=== PATIENT | male | born 1950 | race Two or more races ===

== ENCOUNTER 2016-12-10 19:27 | Inpatient (IN) | payer MEDICAID ==
[~2016-12-10] VITALS: Ht 170.2 cm; Wt 87.5 kg
[~2016-12-10 19:27] MED LIST: CAR3125T PO; INDO25CA PO; LIS5T PO; OMEP20CA5 PO
[2016-12-10 20:41] LABS: Basophils # (auto) 0 uL; Eosinophils # (auto) 0 uL; Eosinophils % (auto) 0.1 % (0.0-7.0); Hematocrit 44.7 % (41.0-53.0); Hemoglobin 14.9 g/dL (13.5-17.5); Lymphocytes # (auto) 0.7 uL; Lymphocytes % (auto) 8.1 % (10.0-50.0); Mean Corpuscular Hgb Conc. 33.5 g/dL (32.0-36.0); Mean Corpuscular Volume 98.8 fL (80.0-100.0); Mean Platelet Volume 6.2 fL (7.4-10.4); Monocytes # (auto) 0.7 uL; Monocytes % (auto) 8.4 % (0.0-12.0); Neutrophils # (auto) 6.8 uL; Neutrophils % (auto) 83.4 % (37.0-80.0); Platelet Count (auto) 246 10^3/uL (140-450); Red Cell Distribution Width 12.6 % (11.6-16.0); White Blood Cell 8.2 10^3/uL (4.4-10.8)
[2016-12-10] MEDS ORDERED: cloNIDine HCL 0.1 MG TAB PO ONE (20:45)
[2016-12-10 21:15] LABS: Albumin 4.1 g/dL (3.4-5.0); BUN/Creatinine Ratio 9.4; Calcium 8.6 mg/dL (8.5-10.1); Potassium 4.1 mmol/L (3.5-5.1); Total Protein 8.2 g/dL (6.4-8.2)
[2016-12-10] MEDS ORDERED: ONDANSETRON HCL 4 MG/2 ML VIAL IV ONE (21:45)
[2016-12-10 23:12] LABS: Urine RBC None Seen /hpf (0 - 3)
[2016-12-10] MEDS ORDERED: SODIUM CHLORIDE 0.9% 1,000 ML IV ONE (23:15)
[2016-12-10 23:30] LABS: Urine Bilirubin Negative (Negative); Urine Blood Negative /uL (Negative); Urine Color Yellow (Yellow); Urine Glucose Normal (Normal); Urine Nitrite Negative (Negative); Urine Squamous Epithelial Cell FEW /hpf (<5); Urine Urobilinogen Normal (Negative); Urine pH 5.5 (5.0-8.0)
[2016-12-10 23:31] LABS: Urine Ketone 3+ (Negative)
[2016-12-11] MEDS ORDERED: SODIUM CHL 3% 500 ML IV ONE (03:00)
[2016-12-11] MEDS ORDERED: cloNIDine HCL 0.1 MG TAB PO PRN (03:00)
[2016-12-11] MEDS ORDERED: ONDANSETRON HCL 4 MG/2 ML VIAL IV PRN (03:00)
[2016-12-11] MEDS ORDERED: HYDROcodone-ACET 5/325MG TAB PO PRN (03:00)
[2016-12-11] MEDS ORDERED: MORPHINE SULF INJ 2 MG/ML SYRINGE 1ML IV PRN (03:00)
[2016-12-11] MEDS ORDERED: ACETAMINOPHEN 325 MG TAB PO PRN (03:00)
[2016-12-11] MEDS ORDERED: TEMAZEPAM 15 MG CAP PO PRN (03:00)
[2016-12-11] MEDS ORDERED: NITROGLYCERIN 0.4 MG SL TAB SL PRN (03:00)
[2016-12-11 06:41] VITALS: BP 136/94
[2016-12-11] MEDS ORDERED: LISI40TA PO (07:17)
[2016-12-11 08:00] VITALS: BP 120/83
[2016-12-11 08:25] VITALS: BP 147/96
[2016-12-11] MEDS: LISINOPRIL 20 MG TAB PO SCH (09:18)
[2016-12-11] MEDS: FAMOTIDINE 20 MG TAB PO SCH ×2 (09:19→21:32)
[2016-12-11] MEDS: ENOXAPARIN SOD 40 MG/0.4 ML SYRINGE SC SCH (09:19)
[2016-12-11] MEDS ORDERED: LORazepam 2MG/ML-1ML VIAL IV PRN (10:15)
[2016-12-11] MEDS ORDERED: FUROSEMIDE 20 MG/2 ML VIAL IV ONE (10:15)
[2016-12-11 12:00] VITALS: BP 98/56
[2016-12-11 17:00] VITALS: BP 106/77
[2016-12-11] MEDS: SODIUM CHLORIDE 0.9% 1,000 ML IV SCH (20:07)
[2016-12-11 22:00] VITALS: BP 93/62
[2016-12-12 05:00] VITALS: BP 107/72
[2016-12-12] MEDS: SODIUM CHLORIDE 0.9% 1,000 ML IV SCH ×2 (05:13→10:35)
[2016-12-12 06:11] LABS: Basophils # (auto) 0 uL; Basophils % (auto) 0.2 % (0.0-2.0); Eosinophils # (auto) 0.1 uL; Eosinophils % (auto) 2.2 % (0.0-7.0); Hematocrit 40.2 % (41.0-53.0); Hemoglobin 13.6 g/dL (13.5-17.5); Lymphocytes # (auto) 0.9 uL; Lymphocytes % (auto) 19.7 % (10.0-50.0); Mean Corpuscular Hemoglobin 33.2 pg (28.0-32.0); Mean Corpuscular Hgb Conc. 33.8 g/dL (32.0-36.0); Mean Platelet Volume 6.1 fL (7.4-10.4); Monocytes # (auto) 0.8 uL; Monocytes % (auto) 17.3 % (0.0-12.0); Neutrophils # (auto) 2.8 uL; Neutrophils % (auto) 60.6 % (37.0-80.0); Platelet Count (auto) 242 10^3/uL (140-450); Red Cell Distribution Width 12.6 % (11.6-16.0); White Blood Cell 4.6 10^3/uL (4.4-10.8)
[2016-12-12 06:36] LABS: Albumin 3.6 g/dL (3.4-5.0); BUN/Creatinine Ratio 11.9; Bilirubin, Total 0.8 mg/dL (0.2-1.0); Calcium 8.4 mg/dL (8.5-10.1); Magnesium 2.3 mg/dL (1.6-2.6); Potassium 4.5 mmol/L (3.5-5.1); Total Protein 6.9 g/dL (6.4-8.2)
[2016-12-12 08:00] VITALS: BP 107/72
[2016-12-12 08:46] VITALS: BP 126/80
[2016-12-12] MEDS: FAMOTIDINE 20 MG TAB PO SCH (10:34)
[2016-12-12] MEDS: LISINOPRIL 20 MG TAB PO SCH (10:35)
[2016-12-12] MEDS: ENOXAPARIN SOD 40 MG/0.4 ML SYRINGE SC SCH (10:35)
[2016-12-12 13:00] VITALS: BP 107/70
[2016-12-12 15:49] VITALS: BP 107/70
== END 2016-12-12 16:30 | disposition home or self-care (01) | DRG 422 ==
LOC: ER 19:31 → TELE 19:32 → TELE-EAST 12-11 05:50
PROVIDERS: ADMIT Nurse Practitioner; ATTEND Internal Medicine
DX: E87.1 Hypo-osmolality and hyponatremia (principal); E86.0 Dehydration; I10 Essential (primary) hypertension; R74.8 Abnormal levels of other serum enzymes; M62.81 Muscle weakness (generalized); M10.9 Gout, unspecified; F41.1 Generalized anxiety disorder; H53.8 Other visual disturbances; Z82.49 Family history of ischemic heart disease and other diseases of the circulatory system; Z79.899 Other long term (current) drug therapy; Z95.0 Presence of cardiac pacemaker
CPT/HCPCS: 36415; 70450; 80053; 81001; 82533; 83735; 83930; 83935; 84295; 84300; 84436; 84443; 84484; 85025; 85652; 93005; 96361; 96374; J2405

== ENCOUNTER → 2017-03-12 | Outpatient (CLI) | payer MEDICARE, MEDICAID ==
[~2017-03-12] MED LIST changes: -CAR3125T PO; -INDO25CA PO; -LIS5T PO; +LISI40TA PO; +LOR05T PO; -OMEP20CA5 PO
[2017-03-12 12:54] LABS: BUN/Creatinine Ratio 11.1; Calcium 9.6 mg/dL (8.5-10.1); Potassium 5.4 mmol/L (3.5-5.1)
== END | disposition home or self-care (01) ==
LOC: LAB 12:07
PROVIDERS: ATTEND Family Medicine
DX: E87.1 Hypo-osmolality and hyponatremia (principal)
CPT/HCPCS: 36415; 80048

== ENCOUNTER → 2017-04-02 | Outpatient (CLI) | payer MEDICARE, MEDICAID ==
[~2017-04-02] MED LIST changes: +APIX5TAB OR; +CAR3125T PO; +INDO25CA14 PO; -LISI40TA PO; +OMEP20CA74 PO
[2017-04-02 10:05] LABS: Albumin 3.9 g/dL (3.4-5.0); BUN/Creatinine Ratio 14.3; Bilirubin, Total 0.6 mg/dL (0.2-1.0); Calcium 8.9 mg/dL (8.5-10.1); Potassium 3.9 mmol/L (3.5-5.1); Total Protein 7.6 g/dL (6.4-8.2)
== END | disposition home or self-care (01) ==
LOC: LAB 09:07
PROVIDERS: ATTEND Family Medicine
DX: I26.99 Other pulmonary embolism without acute cor pulmonale (principal); E87.1 Hypo-osmolality and hyponatremia
CPT/HCPCS: 36415; 80053

== ENCOUNTER → 2017-05-05 | Outpatient (CLI) | payer MEDICARE, MEDICAID ==
[~2017-05-05] MED LIST changes: -APIX5TAB OR; -INDO25CA14 PO; +LOS25T PO; +WARF5TAB PO
[2017-05-05 12:27] LABS: BUN/Creatinine Ratio 11.6; Calcium 8.7 mg/dL (8.5-10.1); Potassium 4.5 mmol/L (3.5-5.1)
== END | disposition home or self-care (01) ==
LOC: LAB 10:28
PROVIDERS: ATTEND Family Medicine
DX: I10 Essential (primary) hypertension (principal); E87.1 Hypo-osmolality and hyponatremia
CPT/HCPCS: 36415; 80048

== ENCOUNTER → 2017-10-23 | Outpatient (CLI) | payer MEDICARE, MEDICAID ==
[~2017-10-23] MED LIST changes: +AMLO5TAB2 PO; +CLON0.1T PO; -LOR05T PO; +LORA-654 PO; +METH500T6 PO; +METO-158 PO; +RIVA20TA PO
[2017-10-23 08:48] LABS: Basophils # (auto) 0 uL; Basophils % (auto) 0.7 % (0.0-2.0); Eosinophils # (auto) 0.2 uL; Eosinophils % (auto) 4.1 % (0.0-7.0); Hematocrit 44.9 % (41.0-53.0); Hemoglobin 15.1 g/dL (13.5-17.5); Lymphocytes # (auto) 0.7 uL; Lymphocytes % (auto) 17.8 % (10.0-50.0); Mean Corpuscular Hemoglobin 33.8 pg (28.0-32.0); Mean Corpuscular Hgb Conc. 33.6 g/dL (32.0-36.0); Mean Corpuscular Volume 100.4 fL (80.0-100.0); Monocytes # (auto) 0.5 uL; Monocytes % (auto) 14.7 % (0.0-12.0); Neutrophils # (auto) 2.3 uL; Neutrophils % (auto) 62.7 % (37.0-80.0); Platelet Count (auto) 223 10^3/uL (140-450); Red Blood Cells 4.47 10^6/uL (4.5-5.90); Red Cell Distribution Width 12.8 % (11.8-14.3); White Blood Cell 3.7 10^3/uL (4.4-10.8)
[2017-10-23 08:58] LABS: Urine Bacteria NONE SEEN /hpf (None Seen); Urine Blood Negative /uL (Negative); Urine Specific Gravity 1.006 (1.001-1.035); Urine WBC <1 /hpf (0 - 3)
[2017-10-23 09:27] LABS: Albumin 3.8 g/dL (3.4-5.0); BUN/Creatinine Ratio 9.7; Bilirubin, Total 0.5 mg/dL (0.2-1.0); Calcium 8.9 mg/dL (8.5-10.1); Potassium 4.4 mmol/L (3.5-5.1); Total Protein 8.2 g/dL (6.4-8.2)
[2017-10-23 09:34] LABS: Folate (Folic Acid) 11.48 ng/mL (5.38-24)
== END | disposition home or self-care (01) ==
LOC: LAB 08:25
PROVIDERS: ATTEND Nurse Practitioner
DX: F33.0 Major depressive disorder, recurrent, mild (principal); R79.89 Other specified abnormal findings of blood chemistry; E55.9 Vitamin D deficiency, unspecified
CPT/HCPCS: 36415; 80053; 80061; 81001; 82306; 82607; 82746; 83036; 84443; 85025

== ENCOUNTER → 2017-11-05 | Outpatient (CLI) | payer MEDICARE, MEDICAID ==
[~2017-11-05] VITALS: Ht 170.2 cm; Wt 83.5 kg
[~2017-11-05] MED LIST changes: +ADENOSINE 70 MG in GIVE UN-DILUTED 0 ML IV ONE
[2017-11-05 09:38] VITALS: BP 149/79
== END | disposition home or self-care (01) ==
LOC: XY 07:01
PROVIDERS: ATTEND Internal Medicine
DX: I48.91 Unspecified atrial fibrillation (principal); I26.99 Other pulmonary embolism without acute cor pulmonale; Z95.0 Presence of cardiac pacemaker
CPT/HCPCS: 78452; 93017; 93306; A9500; J0153

== ENCOUNTER → 2017-11-24 | Outpatient (CLI) | payer MEDICARE, MEDICAID ==
[~2017-11-24] MED LIST changes: -ADENOSINE 70 MG in GIVE UN-DILUTED 0 ML IV ONE
[2017-11-24 09:53] LABS: Basophils # (auto) 0 uL; Basophils % (auto) 1.1 % (0.0-2.0); Eosinophils # (auto) 0.2 uL; Eosinophils % (auto) 5.2 % (0.0-7.0); Hematocrit 43.7 % (41.0-53.0); Hemoglobin 14.7 g/dL (13.5-17.5); Lymphocytes # (auto) 0.9 uL; Lymphocytes % (auto) 22.6 % (10.0-50.0); Mean Corpuscular Hemoglobin 33.4 pg (28.0-32.0); Mean Corpuscular Hgb Conc. 33.5 g/dL (32.0-36.0); Mean Corpuscular Volume 99.7 fL (80.0-100.0); Monocytes # (auto) 0.6 uL; Monocytes % (auto) 15.7 % (0.0-12.0); Neutrophils # (auto) 2.1 uL; Neutrophils % (auto) 55.4 % (37.0-80.0); Platelet Count (auto) 215 10^3/uL (140-450); Red Blood Cells 4.39 10^6/uL (4.5-5.90); Red Cell Distribution Width 13.4 % (11.8-14.3); White Blood Cell 3.8 10^3/uL (4.4-10.8)
[2017-11-24 10:13] LABS: INR 0.93 (0.9-1.15); Partial Thromboplastin Time 25.9 sec (22.64-33.71); Prothrombin Time 10.1 sec (9.37-12.3)
[2017-11-24 10:17] LABS: Albumin 3.8 g/dL (3.4-5.0); BUN/Creatinine Ratio 8.7; Bilirubin, Total 0.3 mg/dL (0.2-1.0); Calcium 8.6 mg/dL (8.5-10.1); Potassium 4.1 mmol/L (3.5-5.1); Total Protein 8.3 g/dL (6.4-8.2)
== END | disposition home or self-care (01) ==
LOC: LAB 09:01
PROVIDERS: ATTEND Internal Medicine
DX: Z01.810 Encounter for preprocedural cardiovascular examination (principal); Z95.0 Presence of cardiac pacemaker; R79.89 Other specified abnormal findings of blood chemistry
CPT/HCPCS: 36415; 80053; 85025; 85610; 85730

== ENCOUNTER 2018-03-26 14:20 | Inpatient (IN) | payer MEDICARE, MEDICAID ==
[~2018-03-26] VITALS: Ht 167.6 cm; Wt 82.1 kg
[~2018-03-26 14:20] MED LIST changes: -CAR3125T PO; -CLON0.1T PO; -METH500T6 PO; -METO-158 PO; -OMEP20CA74 PO; -WARF5TAB PO
[2018-03-26 15:00] LABS: Hematocrit 42.2 % (41.0-53.0); Hemoglobin 14.3 g/dL (13.5-17.5); Mean Corpuscular Hemoglobin 33.7 pg (28.0-32.0); Mean Corpuscular Volume 99.3 fL (80.0-100.0); Platelet Count (auto) 126 10^3/uL (140-450); Red Blood Cells 4.25 10^6/uL (4.5-5.90); Red Cell Distribution Width 13.7 % (11.8-14.3); White Blood Cell 2.9 10^3/uL (4.4-10.8)
[2018-03-26 15:08] LABS: Band Neutrophils % (manual) 0; Basophils % (manual) 0 (0.0-2.0); Blast Cells 0; Metamyelocytes % 0; Myelocytes % 0; Promyelocytes % 0; Reactive Lymphocytes 0
[2018-03-26 15:21] LABS: BUN/Creatinine Ratio 7.3; Bilirubin, Total 0.6 mg/dL (0.2-1.0); Calcium 8.7 mg/dL (8.5-10.1); Magnesium 2.3 mg/dL (1.6-2.6); Total Protein 8.1 g/dL (6.4-8.2)
[2018-03-26 16:32] LABS: Eosinophils % (manual) 3 (0-7); Lymphocytes % (manual) 27 (10.0-50.0); Monocytes % (manual) 15 (0-12)
[2018-03-26] MEDS ORDERED: ENOXAPARIN SOD 80 MG/0.8ML SYRINGE SC ONE (17:30)
[2018-03-26] MEDS ORDERED: NITROGLYCERIN 0.4 MG SL TAB SL PRN (18:15)
[2018-03-26] MEDS ORDERED: KETOROLAC TROMETH 30 MG/ML 1ML VIAL IV PRN (18:15)
[2018-03-26] MEDS ORDERED: ACETAMINOPHEN 500 MG TAB PO PRN (18:15)
[2018-03-26] MEDS ORDERED: MORPHINE SULF INJ 2 MG/ML SYRINGE 1ML IV PRN (18:15)
[2018-03-26] MEDS ORDERED: LABETALOL HCL 5 MG/ML ML 20ML VIAL IV PRN (18:15)
[2018-03-26] MEDS ORDERED: LACTULOSE 20Gm/30ML SOLN PO PRN (18:15)
[2018-03-26] MEDS: SODIUM CHLORIDE 0.9% 1,000 ML IV SCH ×2 (18:41→23:43)
[2018-03-26 19:00] LABS: Folate (Folic Acid) 11.46 ng/mL (5.38-24)
[2018-03-26] MEDS ORDERED: THIAMINE 100mg/ml INJ (200mg/2ml VIAL) IV ONE (19:30)
[2018-03-26] MEDS ORDERED: chlordiazePOXIDE HCL 25 MG CAP PO PRN (19:30)
[2018-03-26 20:00] VITALS: BP 138/92
[2018-03-26] MEDS: chlordiazePOXIDE HCL 5 MG CAP PO SCH (20:18)
[2018-03-26] MEDS: TAMSULOSIN HYDROCHLORIDE 0.4 MG CAP PO SCH (20:19)
[2018-03-26] MEDS: TEMAZEPAM 15 MG CAP PO PRN (21:59)
[2018-03-26 22:00] VITALS: BP 138/92
[2018-03-26] MEDS: LORazepam 0.5 MG TAB PO PRN (23:43)
[2018-03-27] MEDS: PROMETHAZINE HCL 25 MG/ML 1ML IV PRN ×2 (04:18→20:13)
[2018-03-27 05:02] VITALS: BP 136/93
[2018-03-27 06:00] LABS: Hematocrit 41.3 % (41.0-53.0); Hemoglobin 14.1 g/dL (13.5-17.5); Mean Corpuscular Hemoglobin 33.9 pg (28.0-32.0); Mean Corpuscular Hgb Conc. 34.2 g/dL (32.0-36.0); Mean Corpuscular Volume 99.2 fL (80.0-100.0); Platelet Count (auto) 126 10^3/uL (140-450); Red Blood Cells 4.16 10^6/uL (4.5-5.90); Red Cell Distribution Width 13.5 % (11.8-14.3); White Blood Cell 2.5 10^3/uL (4.4-10.8)
[2018-03-27] MEDS: chlordiazePOXIDE HCL 5 MG CAP PO SCH ×5 (06:00→23:30)
[2018-03-27] MEDS ORDERED: ENOXAPARIN SOD 80 MG/0.8ML SYRINGE SC ONE (06:00)
[2018-03-27 06:26] LABS: Band Neutrophils % (manual) 0; Basophils % (manual) 0 (0.0-2.0); Blast Cells 0; Metamyelocytes % 0; Myelocytes % 0; Promyelocytes % 0; Reactive Lymphocytes 0
[2018-03-27 06:42] LABS: Albumin 3.7 g/dL (3.4-5.0); BUN/Creatinine Ratio 10.6; Bilirubin, Total 1.1 mg/dL (0.2-1.0); Calcium 8.8 mg/dL (8.5-10.1); Potassium 4.3 mmol/L (3.5-5.1); Total Protein 7.2 g/dL (6.4-8.2)
[2018-03-27 08:04] LABS: Eosinophils % (manual) 3 (0-7); Lymphocytes % (manual) 20 (10.0-50.0); Monocytes % (manual) 17 (0-12)
[2018-03-27 09:00] VITALS: BP 136/87
[2018-03-27] MEDS: THIAMINE 100mg/ml INJ (200mg/2ml VIAL) IV SCH (09:37)
[2018-03-27] MEDS: ASPirin 81 mg TAB PO SCH (09:37)
[2018-03-27] MEDS: PANTOPRAZOLE 40 MG TAB PO SCH (09:37)
[2018-03-27] MEDS: LORazepam 0.5 MG TAB PO PRN ×2 (09:37→20:26)
[2018-03-27] MEDS ORDERED: ENOXAPARIN SOD 40 MG/0.4 ML SYRINGE SC SCH (10:00)
[2018-03-27 12:30] VITALS: BP 148/104
[2018-03-27] MEDS ORDERED: PARoxetine 20 MG TAB PO ONE (14:45)
[2018-03-27] MEDS: THIAMINE INJ 100 MG, MULTIPLE VITAMIN 10 ML, FOLIC ACID 1 MG, MAGNESIUM SULF SDV 50% 8 ... IV SCH ×5 (16:21)
[2018-03-27] MEDS: traMADol HCL 50 MG TAB PO PRN (16:21)
[2018-03-27 16:53] VITALS: BP 139/69
[2018-03-27] MEDS: SODIUM CHLORIDE 0.9% 1,000 ML IV SCH (17:45)
[2018-03-27] MEDS ORDERED: RIVAROXABAN 20 MG TAB PO SCH ×2 (18:00→19:24)
[2018-03-27] MEDS: TAMSULOSIN HYDROCHLORIDE 0.4 MG CAP PO SCH (18:19)
[2018-03-27 21:50] VITALS: BP 125/83
[2018-03-28 04:51] VITALS: BP 135/85
[2018-03-28] MEDS: LORazepam 0.5 MG TAB PO PRN (04:58)
[2018-03-28] MEDS: SODIUM CHLORIDE 0.9% 1,000 ML IV SCH ×2 (05:31→23:06)
[2018-03-28] MEDS: chlordiazePOXIDE HCL 5 MG CAP PO SCH ×4 (06:21→23:06)
[2018-03-28 08:21] VITALS: BP 146/89
[2018-03-28] MEDS: THIAMINE 100mg/ml INJ (200mg/2ml VIAL) IV SCH (10:00)
[2018-03-28 10:32] LABS: INR 1.08 (0.9-1.15); Partial Thromboplastin Time 30.8 sec (23.78-33.04); Prothrombin Time 11.5 sec (9.27-12.13)
[2018-03-28] MEDS: PANTOPRAZOLE 40 MG TAB PO SCH (10:51)
[2018-03-28] MEDS: PARoxetine 20 MG TAB PO SCH (10:51)
[2018-03-28] MEDS: ASPirin 81 mg TAB PO SCH (10:51)
[2018-03-28 11:40] LABS: Urine Bacteria NONE SEEN /hpf (None Seen); Urine Blood Negative /uL (Negative); Urine Specific Gravity 1.006 (1.001-1.035); Urine WBC 1 /hpf (0 - 3)
[2018-03-28 11:55] LABS: Alcohol, Urine < 3.0 mg/dL (0-5); Amphetamine Screen, Urine NEGATIVE (NEGATIVE); Barbiturate Scree,Urine NEGATIVE (NEGATIVE); Benzodiazephine Screen, Urine POSITIVE (NEGATIVE); Cannabinoid Screen, Urine NEGATIVE (NEGATIVE); Cocaine Screen, Urine NEGATIVE (NEGATIVE); Opiate Scree,Urine NEGATIVE (NEGATIVE); Phencyclidine Screen, Urine NEGATIVE (NEGATIVE)
[2018-03-28] MEDS: THIAMINE INJ 100 MG, MULTIPLE VITAMIN 10 ML, FOLIC ACID 1 MG, MAGNESIUM SULF SDV 50% 8 ... IV SCH ×5 (12:00)
[2018-03-28 12:44] VITALS: BP 126/93
[2018-03-28 17:10] VITALS: BP 137/79
[2018-03-28] MEDS ORDERED: RIVAROXABAN 10 MG TAB PO ONE (18:00)
[2018-03-28] MEDS: TAMSULOSIN HYDROCHLORIDE 0.4 MG CAP PO SCH (18:26)
[2018-03-28] MEDS: TEMAZEPAM 15 MG CAP PO PRN (21:16)
[2018-03-28 22:00] VITALS: BP 130/96
[2018-03-29 05:00] VITALS: BP 127/84
[2018-03-29] MEDS: chlordiazePOXIDE HCL 5 MG CAP PO SCH ×2 (05:51→12:00)
[2018-03-29] MEDS: traMADol HCL 50 MG TAB PO PRN (08:11)
[2018-03-29 08:29] VITALS: BP 155/104
[2018-03-29] MEDS: SODIUM CHLORIDE 0.9% 1,000 ML IV SCH (09:02)
[2018-03-29] MEDS: PANTOPRAZOLE 40 MG TAB PO SCH (09:58)
[2018-03-29] MEDS: PARoxetine 20 MG TAB PO SCH (09:58)
[2018-03-29] MEDS: ASPirin 81 mg TAB PO SCH (09:58)
[2018-03-29 10:00] LABS: Hepatitis B Surface Antibody Negative
[2018-03-29] MEDS: THIAMINE 100mg/ml INJ (200mg/2ml VIAL) IV SCH (10:00)
[2018-03-29 10:38] LABS: Hepatitis A Total Antibody Negative
[2018-03-29 11:46] VITALS: BP 132/86
[2018-03-29] MEDS: THIAMINE INJ 100 MG, MULTIPLE VITAMIN 10 ML, FOLIC ACID 1 MG, MAGNESIUM SULF SDV 50% 8 ... IV SCH ×5 (12:00)
[2018-03-29 12:15] VITALS: BP 132/86
[2018-03-29 12:53] LABS: Hepatitis B Core Total AB Negative; Hepatitis B Surface Antigen Negative (Negative); Hepatitis C Antibody Negative (Negative)
[2018-03-29] MEDS ORDERED: RIVAROXABAN 20 MG TAB PO SCH (18:00)
== END 2018-03-29 14:09 | disposition home or self-care (01) | DRG 896 ==
LOC: ER 14:20 → TELE 14:21 → TELE-CENTR 19:35
PROVIDERS: ADMIT Internal Medicine; ATTEND Family Medicine
DX: F10.129 Alcohol abuse with intoxication, unspecified (principal); I21.4 Non-ST elevation (NSTEMI) myocardial infarction; G45.9 Transient cerebral ischemic attack, unspecified; E87.1 Hypo-osmolality and hyponatremia; I25.110 Atherosclerotic heart disease of native coronary artery with unstable angina pectoris; D72.819 Decreased white blood cell count, unspecified; F41.9 Anxiety disorder, unspecified; I10 Essential (primary) hypertension; I25.10 Atherosclerotic heart disease of native coronary artery without angina pectoris; F03.90 Unspecified dementia, unspecified severity, without behavioral disturbance, psychotic disturbance, mood disturbance, and anxiety; F32.9 Major depressive disorder, single episode, unspecified; N40.0 Benign prostatic hyperplasia without lower urinary tract symptoms; Y90.5 Blood alcohol level of 100-119 mg/100 ml; Z53.9 Procedure and treatment not carried out, unspecified reason; K76.0 Fatty (change of) liver, not elsewhere classified; Z82.49 Family history of ischemic heart disease and other diseases of the circulatory system; Z86.711 Personal history of pulmonary embolism; Z80.9 Family history of malignant neoplasm, unspecified; Z95.0 Presence of cardiac pacemaker
CPT/HCPCS: 36415; 70450; 71045; 76705; 80053; 80061; 80307; 80320; 81001; 82550; 82607; 82746; 83735; 84443; 84484; 85007; 85027; 85379; 85610; 85652; 85730; 86704; 86706; 86708; 86803; 87340; 93005; 93886; 94761; 96372; 96374

== ENCOUNTER → 2018-08-09 | Outpatient (CLI) | payer MEDICARE, MEDICAID ==
[~2018-08-09] MED LIST changes: -AMLO5TAB2 PO
[2018-08-09 10:04] LABS: Basophils # (auto) 0 uL; Basophils % (auto) 0.6 % (0.0-2.0); Eosinophils # (auto) 0.4 uL; Hematocrit 44.6 % (41.0-53.0); Hemoglobin 15.2 g/dL (13.5-17.5); Lymphocytes # (auto) 0.5 uL; Lymphocytes % (auto) 13.8 % (10.0-50.0); Mean Corpuscular Hemoglobin 34.2 pg (28.0-32.0); Mean Corpuscular Hgb Conc. 34.1 g/dL (32.0-36.0); Mean Corpuscular Volume 100.2 fL (80.0-100.0); Monocytes # (auto) 0.6 uL; Monocytes % (auto) 13.9 % (0.0-12.0); Neutrophils # (auto) 2.5 uL; Neutrophils % (auto) 62.7 % (37.0-80.0); Nucleated Red Blood Cells % 0.1 %; Platelet Count (auto) 195 10^3/uL (140-450); Red Blood Cells 4.45 10^6/uL (4.5-5.90); Red Cell Distribution Width 13.3 % (11.8-14.3)
[2018-08-09 10:09] LABS: Urine Bacteria NONE SEEN /hpf (None Seen); Urine Blood Negative /uL (Negative); Urine Specific Gravity 1.007 (1.001-1.035); Urine WBC <1 /hpf (0 - 3)
[2018-08-09 10:43] LABS: Potassium 4.8 mmol/L (3.5-5.1)
[2018-08-09 10:54] LABS: Albumin 3.8 g/dL (3.4-5.0); BUN/Creatinine Ratio 11.6; Bilirubin, Total 0.5 mg/dL (0.2-1.0); Calcium 9.1 mg/dL (8.5-10.1); Total Protein 8.3 g/dL (6.4-8.2)
== END | disposition home or self-care (01) ==
LOC: LAB 08:58
PROVIDERS: ATTEND Nurse Practitioner
DX: E78.5 Hyperlipidemia, unspecified (principal); R31.1 Benign essential microscopic hematuria; I10 Essential (primary) hypertension
CPT/HCPCS: 36415; 80053; 80061; 81001; 84153; 84443; 85025

== ENCOUNTER 2019-01-02 01:43 | Inpatient (IN) | payer MEDICARE, MEDICAID ==
[~2019-01-02] VITALS: Ht 170.2 cm; Wt 86.1 kg
[2019-01-02] MEDS: SODIUM CHLORIDE 0.9% 1,000 ML IV SCH ×2 (03:55→10:20)
[2019-01-02] MEDS ORDERED: IOHEXOL 350 MG/ML 100ML IJ ONE (06:42)
[2019-01-02 07:41] LABS: Basophils # (auto) 0 uL; Basophils % (auto) 0.7 % (0.0-2.0); Eosinophils # (auto) 0.4 uL; Eosinophils % (auto) 8.2 % (0.0-7.0); Hematocrit 44.7 % (41.0-53.0); Hemoglobin 15.4 g/dL (13.5-17.5); Lymphocytes # (auto) 0.8 uL; Lymphocytes % (auto) 18.2 % (10.0-50.0); Mean Corpuscular Hgb Conc. 34.5 g/dL (32.0-36.0); Mean Corpuscular Volume 101.4 fL (80.0-100.0); Monocytes # (auto) 0.7 uL; Monocytes % (auto) 15.6 % (0.0-12.0); Neutrophils # (auto) 2.5 uL; Neutrophils % (auto) 57.3 % (37.0-80.0); Nucleated Red Blood Cells % 0.1 %; Platelet Count (auto) 175 10^3/uL (140-450); Red Blood Cells 4.41 10^6/uL (4.5-5.90); White Blood Cell 4.4 10^3/uL (4.4-10.8)
[2019-01-02 07:52] LABS: Albumin 3.9 g/dL (3.4-5.0); BUN/Creatinine Ratio 9.2; Calcium 9.3 mg/dL (8.5-10.1); Potassium 4.6 mmol/L (3.5-5.1)
[2019-01-02 07:57] LABS: Bilirubin, Total 0.4 mg/dL (0.2-1.0); Total Protein 7.8 g/dL (6.4-8.2)
[2019-01-02] MEDS ORDERED: NITROGLYCERIN 0.4 MG SL TAB SL PRN (10:00)
[2019-01-02] MEDS ORDERED: ENALAPRIL MALEATE 10 MG TAB PO SCH (10:00)
[2019-01-02] MEDS ORDERED: MORPHINE SULF INJ 2 MG/ML SYRINGE 1ML IV PRN (10:00)
[2019-01-02] MEDS ORDERED: TEMAZEPAM 15 MG CAP PO PRN (10:00)
[2019-01-02] MEDS ORDERED: LACTULOSE 20Gm/30ML SOLN PO PRN (10:00)
[2019-01-02] MEDS ORDERED: ACETAMINOPHEN 500 MG TAB PO PRN (10:00)
[2019-01-02] MEDS: NITROGLYCERIN 0.2MG/HR TOPICAL PATCH TD SCH (10:15)
[2019-01-02] MEDS: traMADol HCL 50 MG TAB PO PRN ×2 (10:16→16:10)
[2019-01-02] MEDS: ASPirin 81 mg TAB PO SCH (10:16)
[2019-01-02] MEDS: LOSARTAN POTASSIUM 25 MG TAB PO SCH (10:16)
[2019-01-02] MEDS: METOPROLOL TARTRATE 25 MG TAB PO SCH ×2 (10:17→21:46)
[2019-01-02] MEDS: PANTOPRAZOLE 40 MG TAB PO SCH (10:17)
[2019-01-02 10:43] LABS: CRP High Sensitivity 0.06 mg/dL (< 0.3)
[2019-01-02] MEDS ORDERED: THIAMINE HCL 100 MG TAB PO ONE (11:15)
[2019-01-02] MEDS ORDERED: chlordiazePOXIDE HCL 25 MG CAP PO PRN (11:15)
[2019-01-02] MEDS: LORazepam 0.5 MG TAB PO PRN ×2 (12:06→21:46)
[2019-01-02] MEDS: chlordiazePOXIDE HCL 5 MG CAP PO SCH ×3 (12:07→23:43)
[2019-01-02 15:30] VITALS: BP 125/94
[2019-01-02 17:00] VITALS: BP 126/88
[2019-01-02] MEDS: PROMETHAZINE HCL 25 MG/ML 1ML IV PRN ×2 (17:02→21:46)
[2019-01-02] MEDS ORDERED: RIVAROXABAN 20 MG TAB PO SCH (18:00)
[2019-01-02 22:00] VITALS: BP 134/93
[2019-01-02] MEDS ORDERED: ATORVASTATIN 20 MG TAB PO SCH (22:00)
[2019-01-03 05:00] VITALS: BP 137/87
[2019-01-03] MEDS: chlordiazePOXIDE HCL 5 MG CAP PO SCH ×2 (06:00→11:33)
[2019-01-03 06:33] LABS: Cholesterol 158 mg/dL (< 200)
[2019-01-03 06:36] LABS: HDL Cholesterol 54 mg/dL (40-59); LDL Cholesterol 98 mg/dL (< 100); Triglycerides 61 mg/dL (< 150)
[2019-01-03] MEDS: traMADol HCL 50 MG TAB PO PRN (07:51)
[2019-01-03 08:33] VITALS: BP 147/86
[2019-01-03] MEDS: METOPROLOL TARTRATE 25 MG TAB PO SCH (10:00)
[2019-01-03] MEDS: NITROGLYCERIN 0.2MG/HR TOPICAL PATCH TD SCH (10:00)
[2019-01-03] MEDS ORDERED: THIAMINE HCL 100 MG TAB PO SCH (10:00)
[2019-01-03] MEDS: PANTOPRAZOLE 40 MG TAB PO SCH (10:11)
[2019-01-03] MEDS: LOSARTAN POTASSIUM 25 MG TAB PO SCH (10:13)
[2019-01-03] MEDS: ASPirin 81 mg TAB PO SCH (10:13)
[2019-01-03 11:59] VITALS: BP 157/94
[2019-01-03] MEDS ORDERED: LISI-646 PO (14:32)
[2019-01-03 16:52] VITALS: BP 156/90
== END 2019-01-03 17:30 | disposition home or self-care (01) | DRG 305 ==
LOC: ER 01:43 → TELE 09:55 → TELE-EAST 13:45
PROVIDERS: ADMIT Internal Medicine; ATTEND Internal Medicine
DX: I16.1 Hypertensive emergency (principal); E87.1 Hypo-osmolality and hyponatremia; I10 Essential (primary) hypertension; N40.0 Benign prostatic hyperplasia without lower urinary tract symptoms; D64.9 Anemia, unspecified; F41.9 Anxiety disorder, unspecified; F10.10 Alcohol abuse, uncomplicated; M54.9 Dorsalgia, unspecified; R07.89 Other chest pain; I49.5 Sick sinus syndrome; I25.10 Atherosclerotic heart disease of native coronary artery without angina pectoris; Z79.899 Other long term (current) drug therapy; Z82.49 Family history of ischemic heart disease and other diseases of the circulatory system; Z86.711 Personal history of pulmonary embolism; Z95.0 Presence of cardiac pacemaker
CPT/HCPCS: 36415; 70450; 70470; 71045; 80053; 80061; 82550; 83880; 84484; 85025; 86141; 93005; 96360; 96361; 99291; G0378

== ENCOUNTER → 2019-02-18 | Outpatient (CLI) | payer MEDICARE, MEDICAID ==
[~2019-02-18] MED LIST changes: +ALBUTEROL SULF 2.5 MG/0.5ML(0.5%) NEB SOLN ONE; +LISI-646 PO; -LOS25T PO
== END | disposition home or self-care (01) ==
LOC: RT 08:52
PROVIDERS: ATTEND Internal Medicine Pulmonary Disease
DX: R06.00 Dyspnea, unspecified (principal); R06.02 Shortness of breath
CPT/HCPCS: 94060; 94727; 94729; J7611

== ENCOUNTER → 2019-03-04 | Outpatient (CLI) | payer MEDICARE, MEDICAID ==
[~2019-03-04] MED LIST changes: -ALBUTEROL SULF 2.5 MG/0.5ML(0.5%) NEB SOLN ONE; +IOHEXOL 350 MG/ML 100ML IJ ONE
--- NOTE | 2019-03-04 09:55 | NUR ---
PT. TO CLINIC FOR CTA RENALS PER DR. MARTÍNEZ. ORDERS RECEIVED AND CARRIED OUT.
--- NOTE | 2019-03-04 09:57 | NUR ---
IV insertion IV access obtained, via clean sterile technique by inserting 20 gauge catheter at after attempt(s). IV secured properly. No trauma to site. Patient tolerated procedure well. STAT CREAT. LAB SENT PER PROTOCOL.
[2019-03-04 10:00] VITALS: BP 148/93
--- NOTE | 2019-03-04 11:05 | NUR ---
IV removal IV DC'd with sterile technique, catheter fully intact. Pressure dressing applied to site. Patient tolerated procedure well. Discharged with aftercare instructions per MD. NOTE:
--- NOTE | 2019-03-04 11:07 | NUR ---
Discharge Instructions See e-MAR for any mediations given with this visit. Patient education given on disease process. Patient verbalized understanding. Previous labs reviewed. Patient discharged in stable condition with after care instructions and follow up appointment. ENCOURAGED TO INCREASE WATER INTAKE DUE TO CT DYE. PT VERBALIZED UNDERSTANDING
[2019-03-04 11:19] VITALS: BP 146/94
== END | disposition home or self-care (01) ==
LOC: Rad HDHVI 09:43
PROVIDERS: ATTEND Internal Medicine
DX: K57.90 Diverticulosis of intestine, part unspecified, without perforation or abscess without bleeding (principal); K44.9 Diaphragmatic hernia without obstruction or gangrene; R94.4 Abnormal results of kidney function studies; I11.0 Hypertensive heart disease with heart failure; I50.9 Heart failure, unspecified
CPT/HCPCS: 36415; 74175; 82565; G0463; Q9967

== ENCOUNTER → 2019-03-24 | Outpatient (CLI) | payer MEDICARE, MEDICAID ==
[~2019-03-24] MED LIST changes: -IOHEXOL 350 MG/ML 100ML IJ ONE
== END | disposition home or self-care (01) ==
LOC: XYW 08:34
PROVIDERS: ATTEND Internal Medicine Pulmonary Disease
DX: I07.1 Rheumatic tricuspid insufficiency (principal); R06.00 Dyspnea, unspecified
CPT/HCPCS: 93306

== ENCOUNTER 2019-04-09 00:20 | Emergency (ER) | payer MEDICARE, MEDICAID ==
[~2019-04-09] VITALS: Ht 170.2 cm; Wt 83.9 kg
[2019-04-09 00:46] VITALS: BP 105/67
[2019-04-09 01:03] LABS: Basophils # (auto) 0 uL; Basophils % (auto) 0.7 % (0.0-2.0); Eosinophils # (auto) 0.3 uL; Eosinophils % (auto) 8.7 % (0.0-7.0); Hematocrit 41.4 % (41.0-53.0); Lymphocytes # (auto) 1.2 uL; Lymphocytes % (auto) 35.9 % (10.0-50.0); Mean Corpuscular Hemoglobin 34.3 pg (28.0-32.0); Mean Corpuscular Hgb Conc. 33.9 g/dL (32.0-36.0); Mean Corpuscular Volume 101.1 fL (80.0-100.0); Monocytes # (auto) 0.5 uL; Monocytes % (auto) 15.2 % (0.0-12.0); Neutrophils # (auto) 1.3 uL; Neutrophils % (auto) 39.5 % (37.0-80.0); Nucleated Red Blood Cells % 0.1 %; Platelet Count (auto) 222 10^3/uL (140-450); Red Cell Distribution Width 13.3 % (11.8-14.3); White Blood Cell 3.3 10^3/uL (4.4-10.8)
[2019-04-09 01:22] LABS: Alanine Aminotransferase 28 U/L (16-61); Albumin 3.5 g/dL (3.4-5.0); Anion Gap 11 (5-15); Aspartate Aminotransferase 25 U/L (15-37); BUN/Creatinine Ratio 6.9; Blood Urea Nitrogen 6 mg/dL (7-18); Calcium 8.4 mg/dL (8.5-10.1); Carbon Dioxide 25 mmol/L (21-32); Chloride 99 mmol/L (98-107); GFR African American 113 mL/min; GFR Non-African American 93 mL/min; Glucose 93 mg/dL (74-106); Potassium 3.9 mmol/L (3.5-5.1); Sodium 135 mmol/L (136-145)
[2019-04-09 01:27] LABS: Alkaline Phosphatase 49 U/L (45-117); Bilirubin, Total 0.2 mg/dL (0.2-1.0); Total Protein 7.8 g/dL (6.4-8.2)
== END 2019-04-09 01:47 | disposition left against medical advice (07) ==
LOC: ER 00:24
DX: I95.9 Hypotension, unspecified (principal); Z53.21 Procedure and treatment not carried out due to patient leaving prior to being seen by health care provider
CPT/HCPCS: 36415; 80053; 84484; 85025; 93005

== ENCOUNTER → 2019-11-24 | Outpatient (CLI) | payer MEDICARE, MEDICAID ==
[~2019-11-24] MED LIST changes: -LORA-654 PO; +LORA0.5T12 PO
[2019-11-24 09:12] LABS: Basophils # (auto) 0 uL; Eosinophils # (auto) 0.1 uL; Eosinophils % (auto) 3.2 % (0.0-7.0); Hematocrit 43.5 % (41.0-53.0); Hemoglobin 14.7 g/dL (13.5-17.5); Lymphocytes # (auto) 0.5 uL; Lymphocytes % (auto) 18.1 % (10.0-50.0); Mean Corpuscular Hgb Conc. 33.9 g/dL (32.0-36.0); Mean Corpuscular Volume 100.4 fL (80.0-100.0); Monocytes # (auto) 0.6 uL; Neutrophils # (auto) 1.7 uL; Neutrophils % (auto) 58.2 % (37.0-80.0); Nucleated Red Blood Cells % 0.1 %; Platelet Count (auto) 135 10^3/uL (140-450); Red Blood Cells 4.33 10^6/uL (4.5-5.90); Red Cell Distribution Width 13.2 % (11.8-14.3); White Blood Cell 2.9 10^3/uL (4.4-10.8)
[2019-11-24 09:19] LABS: Monocytes % (auto) 19.5 % (0.0-12.0)
[2019-11-24 09:34] LABS: Potassium 4.6 mmol/L (3.5-5.1)
[2019-11-24 09:40] LABS: Bilirubin, Total 1.1 mg/dL (0.2-1.0); Total Protein 8.2 g/dL (6.4-8.2)
== END | disposition home or self-care (01) ==
LOC: LAB 08:22
PROVIDERS: ATTEND Nurse Practitioner
DX: E78.5 Hyperlipidemia, unspecified (principal)
CPT/HCPCS: 36415; 80053; 80061; 84443; 85025

== ENCOUNTER 2019-12-02 18:33 | Emergency (ER) | payer MEDICARE, MEDICAID ==
[~2019-12-02] VITALS: Ht 170.2 cm; Wt 77.1 kg
[2019-12-02] MEDS ORDERED: HYDROcodone-ACET 10/325MG TAB PO ONE (19:30)
[2019-12-02] MEDS: SODIUM CHLORIDE 0.9% 1,000 ML IV ONE ×2 (20:05→20:12)
[2019-12-02 20:34] LABS: Basophils # (auto) 0 10 ^3/uL (0-0.2); Eosinophils # (auto) 0.1 10 ^3/uL (0-0.8); Lymphocytes # (auto) 0.7 10 ^3/uL (0.4-5.4); Neutrophils # (auto) 1.7 10 ^3/uL (1.6-8.6)
[2019-12-02 20:36] LABS: Basophils % (auto) 1.1 % (0.0-2.0); Eosinophils % (auto) 2.7 % (0.0-7.0); Hematocrit 37.7 % (41.0-53.0); Hemoglobin 13.1 g/dL (13.5-17.5); Lymphocytes % (auto) 23.8 % (10.0-50.0); Mean Corpuscular Hemoglobin 34.8 pg (28.0-32.0); Mean Corpuscular Hgb Conc. 34.7 g/dL (32.0-36.0); Mean Corpuscular Volume 100.4 fL (80.0-100.0); Monocytes # (auto) 0.3 10 ^3/uL (0-1.3); Monocytes % (auto) 11.5 % (0.0-12.0); Neutrophils % (auto) 60.9 % (37.0-80.0); Nucleated Red Blood Cells % 0.1 %; Platelet Count (auto) 136 10^3/uL (140-450); Red Blood Cells 3.76 10^6/uL (4.5-5.90); Red Cell Distribution Width 13.3 % (11.8-14.3); White Blood Cell 2.9 10^3/uL (4.4-10.8)
[2019-12-02 20:47] LABS: INR 1.06 (0.9-1.15); Partial Thromboplastin Time 29.4 sec (23.64-32.05)
[2019-12-02 20:51] LABS: Albumin 3.8 g/dL (3.4-5.0); Calcium 8.4 mg/dL (8.5-10.1); Magnesium 1.9 mg/dL (1.6-2.6)
[2019-12-02 20:56] LABS: BUN/Creatinine Ratio 4.4; Bilirubin, Total 0.5 mg/dL (0.2-1.0); Total Protein 7.8 g/dL (6.4-8.2)
[2019-12-03] MEDS ORDERED: SODIUM CHLORIDE 0.9% 1,000 ML IV ONE (04:15)
[2019-12-03] MEDS ORDERED: ONDANSETRON HCL 4 MG/2 ML VIAL IV ONE (04:15)
[2019-12-03 04:55] VITALS: BP 139/95
== END 2019-12-03 05:07 | disposition home or self-care (01) ==
LOC: ER 18:33
DX: S42.202A Unspecified fracture of upper end of left humerus, initial encounter for closed fracture (principal); R55 Syncope and collapse; I10 Essential (primary) hypertension; Z95.0 Presence of cardiac pacemaker; Z79.899 Other long term (current) drug therapy; W10.1XXA Fall (on)(from) sidewalk curb, initial encounter; Y93.89 Activity, other specified; Y92.89 Other specified places as the place of occurrence of the external cause; Y99.8 Other external cause status
CPT/HCPCS: 36415; 70450; 71045; 72125; 73030; 80053; 82962; 83735; 83880; 84443; 84484; 85025; 85610; 85730; 93005; 96361; 96374; 99285; J2405; J7030

== ENCOUNTER 2020-04-16 12:03 | Inpatient (IN) | payer MEDICARE, MEDICAID ==
[~2020-04-16] VITALS: Ht 170.2 cm; Wt 76.6 kg
[~2020-04-16 12:03] MED LIST changes: -LORA0.5T12 PO; +LORA0.5T20 PO
[2020-04-16] MEDS: SODIUM CHLORIDE 0.9% 1,000 ML IV ONE ×2 (12:28→22:11)
[2020-04-16] MEDS ORDERED: SODIUM CHLORIDE 0.9% 1,000 ML IV ONE (12:28)
[2020-04-16] MEDS ORDERED: PANTOPRAZOLE 40 MG/10 ML VIAL INJ IV ONE (12:30)
[2020-04-16] MEDS ORDERED: metroNIDAZOLE 500MG/100ML 100 ML IV ONE (13:15)
[2020-04-16] MEDS ORDERED: cefTRIAXone 1GM/50ML D5W 50 ML IV ONE (13:15)
[2020-04-16 13:30] LABS: Basophils # (auto) 0 10 ^3/uL (0-0.2); Eosinophils # (auto) 0.1 10 ^3/uL (0-0.8); Monocytes # (auto) 0.5 10 ^3/uL (0-1.3); White Blood Cell 2.9 10^3/uL (4.4-10.8)
[2020-04-16 13:31] LABS: Basophils % (auto) 0.5 % (0.0-2.0); Eosinophils % (auto) 3.1 % (0.0-7.0); Hematocrit 39.6 % (41.0-53.0); Hemoglobin 13.7 g/dL (13.5-17.5); Lymphocytes # (auto) 0.5 10 ^3/uL (0.4-5.4); Lymphocytes % (auto) 16.1 % (10.0-50.0); Mean Corpuscular Hemoglobin 35.3 pg (28.0-32.0); Mean Corpuscular Hgb Conc. 34.6 g/dL (32.0-36.0); Mean Corpuscular Volume 102.1 fL (80.0-100.0); Monocytes % (auto) 17.9 % (0.0-12.0); Neutrophils # (auto) 1.8 10 ^3/uL (1.6-8.6); Neutrophils % (auto) 62.4 % (37.0-80.0); Nucleated Red Blood Cells % 0.1 %; Platelet Count (auto) 128 10^3/uL (140-450); Red Blood Cells 3.88 10^6/uL (4.5-5.90); Red Cell Distribution Width 13.4 % (11.8-14.3)
[2020-04-16 13:46] LABS: INR 1.36 (0.9-1.15); Partial Thromboplastin Time 43.1 sec (23.64-32.05)
[2020-04-16 13:49] LABS: Calcium 8.5 mg/dL (8.5-10.1); Chloride 82 mmol/L (98-107); Potassium 3.8 mmol/L (3.5-5.1)
[2020-04-16 13:58] LABS: Alanine Aminotransferase 145 U/L (16-61); Albumin 3.8 g/dL (3.4-5.0); Alkaline Phosphatase 48 U/L (45-117); Anion Gap 11 (5-15); Aspartate Aminotransferase 208 U/L (15-37); BUN/Creatinine Ratio 3.4; Bilirubin, Total 1.3 mg/dL (0.2-1.0); Blood Urea Nitrogen 2 mg/dL (7-18); Carbon Dioxide 24 mmol/L (21-32); GFR African American 176 mL/min; GFR Non-African American 145 mL/min; Glucose 100 mg/dL (74-106); Total Protein 7.8 g/dL (6.4-8.2)
[2020-04-16 14:05] LABS: Sodium 117 mmol/L (136-145)
[2020-04-16 16:44] LABS: Lactic Acid w/Reflex 2.3 mmol/L (0.4-2.0)
[2020-04-16] MEDS ORDERED: LORazepam 2MG/ML-1ML VIAL IV ONE (18:30)
[2020-04-16] MEDS ORDERED: NITROGLYCERIN 0.4 MG SL TAB SL PRN (21:15)
[2020-04-16] MEDS ORDERED: MORPHINE SULF INJ 2 MG/ML SYRINGE 1ML IV PRN (21:15)
[2020-04-16] MEDS: SODIUM CHLORIDE 0.9% 1,000 ML IV SCH (21:15)
[2020-04-16 21:40] LABS: Urine Bacteria NONE SEEN /hpf (None Seen); Urine Blood Negative /uL (Negative); Urine Specific Gravity 1.004 (1.001-1.035); Urine WBC <1 /hpf (0 - 3)
[2020-04-16] MEDS: metroNIDAZOLE 500MG/100ML 100 ML IV SCH (22:00)
[2020-04-16] MEDS: PANTOPRAZOLE 40 MG/10 ML VIAL INJ IV SCH (22:00)
--- NOTE | 2020-04-16 22:31 | NUR ---
Telemetry admit from ER WILL IVORY admitted to Telemetry unit. Patient oriented to Rosalia De Jesus, primary RN, unit, room, bed, and unit policies regarding patient care and visiting hours. Patient now on continuous telemetry monitoring, tele box #[id number] and telemetry reading on arrival to unit is SR in the 90s. Patient weighed by bedscale and encouraged to call if they need something. All questions and concerns addressed, patient verbalized understanding.
[2020-04-16 22:42] VITALS: BP 143/95
[2020-04-16] MEDS ORDERED: CARV12.544 PO (23:59)
--- NOTE | 2020-04-17 00:10 | NUR ---
Paged Hospitalist Patient requesting Ativan for anxiety and alcohol withdrawal symptoms. Patient had visible hand tremor. Patient stated his last alcoholic drink was the Thursday morning and is a chronic alcohol drinker averaging around 9 beers a day which is reduced from his previous drinking habits. Will continue to monitor and awaiting call back.
[2020-04-17] MEDS ORDERED: chlordiazePOXIDE HCL 25 MG CAP PO ONE (00:45)
[2020-04-17] MEDS: ONDANSETRON HCL 4 MG/2 ML VIAL IV PRN ×2 (01:17→17:56)
[2020-04-17 04:36] LABS: Potassium 3.8 mmol/L (3.5-5.1)
[2020-04-17 04:50] LABS: Albumin 3.7 g/dL (3.4-5.0); BUN/Creatinine Ratio 4.7; Bilirubin, Total 1.5 mg/dL (0.2-1.0); Calcium 8.5 mg/dL (8.5-10.1); Total Protein 7.5 g/dL (6.4-8.2)
[2020-04-17 05:00] VITALS: BP 122/82
[2020-04-17 05:18] LABS: Basophils # (auto) 0 10 ^3/uL (0-0.2); Basophils % (auto) 0.5 % (0.0-2.0); Eosinophils # (auto) 0.1 10 ^3/uL (0-0.8); Eosinophils % (auto) 2.3 % (0.0-7.0); Hematocrit 39.3 % (41.0-53.0); Hemoglobin 13.6 g/dL (13.5-17.5); Lymphocytes # (auto) 0.5 10 ^3/uL (0.4-5.4); Lymphocytes % (auto) 10.7 % (10.0-50.0); Mean Corpuscular Hemoglobin 35.1 pg (28.0-32.0); Mean Corpuscular Hgb Conc. 34.5 g/dL (32.0-36.0); Mean Corpuscular Volume 101.7 fL (80.0-100.0); Monocytes # (auto) 0.8 10 ^3/uL (0-1.3); Monocytes % (auto) 17.6 % (0.0-12.0); Neutrophils % (auto) 68.9 % (37.0-80.0); Nucleated Red Blood Cells % 0.1 %; Platelet Count (auto) 133 10^3/uL (140-450); Red Blood Cells 3.86 10^6/uL (4.5-5.90); Red Cell Distribution Width 13.7 % (11.8-14.3); White Blood Cell 4.3 10^3/uL (4.4-10.8)
[2020-04-17] MEDS: metroNIDAZOLE 500MG/100ML 100 ML IV SCH ×3 (05:22→22:00)
[2020-04-17] MEDS: SODIUM CHLORIDE 0.9% 1,000 ML IV SCH ×2 (05:36→13:25)
[2020-04-17] MEDS: chlordiazePOXIDE HCL 25 MG CAP PO PRN ×2 (06:52→13:25)
[2020-04-17] MEDS: cefTRIAXone 1GM/50ML D5W 50 ML IV SCH (08:54)
[2020-04-17] MEDS: PANTOPRAZOLE 40 MG/10 ML VIAL INJ IV SCH ×2 (08:55→22:00)
[2020-04-17 09:13] VITALS: BP 138/92
[2020-04-17] MEDS: FLUoxetine HCL 20 MG CAP PO SCH (10:56)
[2020-04-17 12:57] VITALS: BP 154/96
[2020-04-17] MEDS ORDERED: FOLIC ACID 1 MG, MULTIPLE VITAMIN 10 ML, MAGNESIUM SULF SDV 50% 8 MEQ, THIAMINE INJ 100... INJ ONE ×5 (13:45)
--- NOTE | 2020-04-17 14:31 | NUR ---
Nutrition Assessment/consult Notes Please see attached link for complete assessment Est Energy needs BW 76 [id number] kcals (23-25 kcal/kgBW), Est Protein needs: 76-83 gms/day (1.0-1.1 gm/kgBW). Will continue to monitor and reassess prn. Addendum: 04/17/20 at [address] Amended: Links added.
[2020-04-17 16:42] VITALS: BP 123/83
[2020-04-17] MEDS: chlordiazePOXIDE HCL 25 MG CAP PO SCH ×2 (17:51→23:56)
--- NOTE | 2020-04-17 20:20 | NUR ---
1899. REPORT OBTAINED ON PATIENT. 1999. PATIENT SEEN. LYING SUPINE IN BED, ALERT AND ORIENTED. DENIED PAIN OR DISCOMFORT. IV SITE INTACT. IVF INFUSING. CALL BUTTON WITHIN REACH. Addendum: 04/17/20 at 2023 by GIA PYLE RN RN ABOVE IS WRONG ENTRY. NOT FOR THIS PATIENT.
--- NOTE | 2020-04-17 20:39 | NUR ---
1899. REPORT OBTAINED ON PATIENT. 1999. PATIENT MET IN HIS ROOM.CALM IN BED NOT IN ANY DISTRESS. FULLY ALERT. HAS HAD MO BOWEL MOVEMENT TODAY CALL BUTTON WITHIN REACH
[2020-04-17 22:00] VITALS: BP 131/86
--- NOTE | 2020-04-18 00:44 | NUR ---
PATIENT IS SLEEPING AT THIS TIME.
[2020-04-18 04:50] VITALS: BP 119/85
[2020-04-18] MEDS: chlordiazePOXIDE HCL 25 MG CAP PO SCH ×3 (05:50→17:26)
[2020-04-18] MEDS: metroNIDAZOLE 500MG/100ML 100 ML IV SCH ×3 (05:50→22:31)
--- NOTE | 2020-04-18 07:30 | NUR ---
Opening Shift Note Assumed care of patient, awake and alert. No S/S of distress/SOB or pain. Bed is low, locked with 2x side rails up. Call light is within reach. Instructed on POC and to call for assist PRN, will continue to monitor for changes Q1hr and PRN.
[2020-04-18 07:38] LABS: Calcium 8.5 mg/dL (8.5-10.1); Potassium 3.2 mmol/L (3.5-5.1)
[2020-04-18 07:40] LABS: BUN/Creatinine Ratio 4.8
[2020-04-18 09:00] VITALS: BP 122/83
[2020-04-18] MEDS: SODIUM CHLORIDE 0.9% 1,000 ML IV SCH (09:00)
[2020-04-18] MEDS: cefTRIAXone 1GM/50ML D5W 50 ML IV SCH (09:28)
[2020-04-18] MEDS: PANTOPRAZOLE 40 MG/10 ML VIAL INJ IV SCH ×2 (09:28→22:31)
[2020-04-18] MEDS: FLUoxetine HCL 20 MG CAP PO SCH (09:28)
[2020-04-18] MEDS ORDERED: POTASSIUM CHL 20 Meq TABLET PO ONE (11:15)
[2020-04-18] MEDS: SOD CHL 0.9%/ KCL 20MEQ 1,000 ML IV SCH (11:53)
[2020-04-18] MEDS ORDERED: GOLYTELY 4L KIT PO ONE (12:00)
[2020-04-18 13:00] VITALS: BP 144/90
[2020-04-18] MEDS: FOLIC ACID 1 MG, MULTIPLE VITAMIN 10 ML, MAGNESIUM SULF SDV 50% 8 MEQ, THIAMINE INJ 100... INJ SCH ×5 (13:40)
--- NOTE | 2020-04-18 19:50 | NUR ---
RECEIVED PATIENT FROM DAY SHIFT RN. PATIENT RESTING IN BED. NO S/S OF DISTRESS NOTED. DENIED PAIN FOR NOW. REINFORCED PATIENT NPO AFTER MIDNIGHT FOR PROCEDURE TOMORROW. PATIENT FINISHED HIS WHOLE BOTTLE OF GOLYTELY, \AND HIS BM LIGHT YELLOW CLEAR NOW. INSTRUCTED PATIENT HE SHOULD LEAVE SOME GOLYTELY FOR TOMORROW MORNING. REINFORCED PATIENT ON CLEAR LIQUID DIET. PATIENT VERBALIZED UNDERSTANDING. POC INSTRUCTED AND ENCOURAGED PATIENT TO CALL FOR EVENT MARKETING SPECIALIST IF NEEDED. BED IN LOWEST POSITION WITH SIDE RAILS UP X 2. CALL [facility] WITHIN REACH. ALARM ON . CONTINUE TO MONITOR FOR CHANGES Q1H AND PRN.
[2020-04-18 22:00] VITALS: BP 142/88
--- NOTE | 2020-04-18 22:04 | NUR ---
PATIENT WALKED TO BATHROOM WITH STEADY GAIT. NO S/S OF DISTRESS NOTED. HAD CLEAR YELLOW LIQUID BM. CONTINUE TO MONITOR.
[2020-04-19] MEDS: chlordiazePOXIDE HCL 25 MG CAP PO SCH ×3 (00:02→11:42)
--- NOTE | 2020-04-19 00:02 | NUR ---
PATIENT STARTED NPO FROM NOW. WATER AND FOOD REMOVED FROM BEDSIDE. CONTINUE TO MONITOR.
[2020-04-19] MEDS: SOD CHL 0.9%/ KCL 20MEQ 1,000 ML IV SCH ×2 (00:04→17:10)
--- NOTE | 2020-04-19 02:27 | NUR ---
PATIENT WALKED TO BATHROOM WITH STEADY GAIT. NO S/S OF DISTRESS NOTED. HAD CLEAR LIGHT YELLOW LIQUID BM. CONTINUE TO MONITOR.
[2020-04-19] MEDS ORDERED: GOLYTELY 4L KIT PO ONE (04:00)
[2020-04-19 05:00] VITALS: BP 114/85
[2020-04-19] MEDS: metroNIDAZOLE 500MG/100ML 100 ML IV SCH ×2 (05:33→14:00)
--- NOTE | 2020-04-19 07:10 | NUR ---
Opening Shift Note Assumed care of patient, who is alert and oriented x4. No S/S of distress/SOB or pain. Bed is low, locked with 2x side rails up. Call light is within reach. Instructed on POC and to call for assist PRN, will continue to monitor for changes Q1hr and PRN.
[2020-04-19 07:32] LABS: Calcium 8.4 mg/dL (8.5-10.1); Chloride 99 mmol/L (98-107); Sodium 133 mmol/L (136-145)
[2020-04-19 07:36] LABS: Anion Gap 6 (5-15); BUN/Creatinine Ratio 1.6; Blood Urea Nitrogen < 1 mg/dL (7-18); Carbon Dioxide 28 mmol/L (21-32); GFR African American 166 mL/min; GFR Non-African American 137 mL/min; Glucose 96 mg/dL (74-106)
[2020-04-19 09:00] VITALS: BP 137/90
[2020-04-19] MEDS: cefTRIAXone 1GM/50ML D5W 50 ML IV SCH (09:00)
[2020-04-19] MEDS ORDERED: NALOXONE HCL 0.4 MG/ML VIAL ONE (09:02)
[2020-04-19] MEDS ORDERED: SODIUM CHLORIDE LOCK 10 ML ONE (09:02)
[2020-04-19] MEDS ORDERED: FLUMAZENIL 0.1 MG/ML INJ 10ML MDV IV ONE (09:02)
[2020-04-19] MEDS ORDERED: diphenhdrAMINE HCL 50 MG/1 ML VL ONE (09:03)
[2020-04-19] MEDS: MIDAZOLAM HCL 5 MG/ML-1ML VIAL ONE ×3 (09:17→09:29)
[2020-04-19] MEDS: fentaNYL CITRATE 100 MCG/2 ML VL ONE ×3 (09:17→09:29)
--- NOTE | 2020-04-19 09:17 | NUR ---
Patient off unit Patient taken down to pre-op for scheduled colonoscopy with Dr. Styles. IV to R FA is patent and intact. Patient NPO since midnight. No distress noted upon departure.
[2020-04-19 09:31] LABS: Albumin 3.4 g/dL (3.4-5.0)
[2020-04-19 09:35] LABS: Bilirubin, Direct 0.4 mg/dL (0-0.2); Bilirubin, Total 0.9 mg/dL (0.2-1.0); Total Protein 6.9 g/dL (6.4-8.2)
--- NOTE | 2020-04-19 10:34 | NUR ---
Back in room S/p colonoscopy. Patient is resting with eyes closed. Respirations are even and unlabored. Bed is low, locked with 2x side rails up. Call light is within reach. Will continue to monitor.
[2020-04-19] MEDS: FLUoxetine HCL 20 MG CAP PO SCH (11:42)
[2020-04-19] MEDS: PANTOPRAZOLE 40 MG/10 ML VIAL INJ IV SCH (11:42)
[2020-04-19] MEDS: FOLIC ACID 1 MG, MULTIPLE VITAMIN 10 ML, MAGNESIUM SULF SDV 50% 8 MEQ, THIAMINE INJ 100... INJ SCH ×5 (12:07)
[2020-04-19 13:00] VITALS: BP 138/95
[2020-04-19] MEDS ORDERED: METR500T PO (14:37)
[2020-04-19] MEDS ORDERED: MULTTAB75 PO (14:37)
[2020-04-19] MEDS ORDERED: LEVO-28 PO (14:37)
[2020-04-19] MEDS ORDERED: FLUO20CA90 PO (14:37)
[2020-04-19 16:10] VITALS: BP 137/95
[2020-04-19 17:13] VITALS: BP 116/74
--- NOTE | 2020-04-19 17:41 | NUR ---
Discharge instructions given as ordered. Encourage to follow up with PMD as instructed. All questions and concerns addressed. Patient verbalized understanding. IV removed with catheter intact, pressure dressing applied. Telemetry unit returned to ICU. Patient taken to vehicle via wheelchair with all personal belongings, accompanied by staff. No distress noted at time of departure.
== END 2020-04-19 17:40 | disposition home or self-care (01) | DRG 392 ==
LOC: ER 12:03 → TELE 12:04 → TELE-WESTW 22:35
PROVIDERS: ADMIT Nurse Practitioner; ATTEND Internal Medicine
PROC: 0DBC8ZX Excision of Ileocecal Valve, Via Natural or Artificial Opening Endoscopic, Diagnostic (ICD-10-PCS; 2020-04-19)
PROC: 0DBH8ZX Excision of Cecum, Via Natural or Artificial Opening Endoscopic, Diagnostic (ICD-10-PCS; principal; 2020-04-19 09:15)
DX: K52.9 Noninfective gastroenteritis and colitis, unspecified (principal); E87.1 Hypo-osmolality and hyponatremia; D68.9 Coagulation defect, unspecified; F10.239 Alcohol dependence with withdrawal, unspecified; K44.9 Diaphragmatic hernia without obstruction or gangrene; K70.9 Alcoholic liver disease, unspecified; K76.0 Fatty (change of) liver, not elsewhere classified; I10 Essential (primary) hypertension; F32.9 Major depressive disorder, single episode, unspecified; K63.5 Polyp of colon; K64.8 Other hemorrhoids; F41.9 Anxiety disorder, unspecified; K57.30 Diverticulosis of large intestine without perforation or abscess without bleeding; K63.89 Other specified diseases of intestine; D69.6 Thrombocytopenia, unspecified; D72.819 Decreased white blood cell count, unspecified; Z95.0 Presence of cardiac pacemaker; Z82.49 Family history of ischemic heart disease and other diseases of the circulatory system; Z86.711 Personal history of pulmonary embolism; Z86.73 Personal history of transient ischemic attack (TIA), and cerebral infarction without residual deficits
CPT/HCPCS: 36415; 71045; 74176; 80048; 80053; 80076; 81001; 82270; 83605; 84484; 85025; 85610; 85730; 86677; 86850; 86900; 86901; 87040; 93005; 96365; 96368; 96375; 99291; C9113; G0378; J0696; J2250; J2405; J3490

== ENCOUNTER 2020-08-17 14:02 | Emergency (ER) | payer MEDICARE, MEDICAID ==
[~2020-08-17] VITALS: Ht 170.2 cm; Wt 74.8 kg
[~2020-08-17 14:02] MED LIST changes: +CARV12.544 PO; +FLUO20CA90 PO; +LEVO-28 PO; -LISI-646 PO; -LORA0.5T20 PO; +METR500T PO; +MULTTAB75 PO
[2020-08-17 14:14] VITALS: BP 137/91
[2020-08-17] MEDS ORDERED: SODIUM CHLORIDE 0.9% 1,000 ML IV ONE (14:45)
== END 2020-08-17 20:15 | disposition left against medical advice (07) ==
LOC: EDUNIT# 14:02 → EDBD 14:02 → ER 14:02
DX: S20.219A Contusion of unspecified front wall of thorax, initial encounter (principal); F10.129 Alcohol abuse with intoxication, unspecified; I10 Essential (primary) hypertension; I25.2 Old myocardial infarction; V43.52XA Car driver injured in collision with other type car in traffic accident, initial encounter; Y93.89 Activity, other specified; Y92.488 Other paved roadways as the place of occurrence of the external cause; Y99.8 Other external cause status; Y90.8 Blood alcohol level of 240 mg/100 ml or more
CPT/HCPCS: 93005

== ENCOUNTER 2020-08-19 16:21 | Emergency (ER) | payer MEDICARE, MEDICAID ==
[~2020-08-19] VITALS: Ht 172.7 cm; Wt 81.6 kg
[2020-08-19] MEDS ORDERED: SODIUM CHLORIDE 0.9% 1,000 ML IV ONE (17:00)
[2020-08-19 17:39] LABS: Albumin 3.6 g/dL (3.4-5.0); BUN/Creatinine Ratio 4.9; Calcium 8.7 mg/dL (8.5-10.1); Potassium 3.5 mmol/L (3.5-5.1)
[2020-08-19 17:41] LABS: Basophils # (auto) 0 10 ^3/uL (0-0.2); Hemoglobin 13.9 g/dL (13.5-17.5); Lymphocytes # (auto) 0.8 10 ^3/uL (0.4-5.4); Neutrophils # (auto) 2.4 10 ^3/uL (1.6-8.6); Nucleated Red Blood Cells % 0.1 %
[2020-08-19 17:42] LABS: Basophils % (auto) 0.6 % (0.0-2.0); Eosinophils # (auto) 0.1 10 ^3/uL (0-0.8); Eosinophils % (auto) 1.4 % (0.0-7.0); Hematocrit 39.7 % (41.0-53.0); Lymphocytes % (auto) 22.2 % (10.0-50.0); Mean Corpuscular Hemoglobin 35.8 pg (28.0-32.0); Mean Corpuscular Hgb Conc. 34.9 g/dL (32.0-36.0); Mean Corpuscular Volume 102.7 fL (80.0-100.0); Monocytes # (auto) 0.5 10 ^3/uL (0-1.3); Monocytes % (auto) 12.6 % (0.0-12.0); Neutrophils % (auto) 63.2 % (37.0-80.0); Platelet Count (auto) 173 10^3/uL (140-450); Red Blood Cells 3.87 10^6/uL (4.5-5.90); Red Cell Distribution Width 13.6 % (11.8-14.3); White Blood Cell 3.7 10^3/uL (4.4-10.8)
[2020-08-19 18:10] LABS: Bilirubin, Total 0.8 mg/dL (0.2-1.0); Total Protein 7.7 g/dL (6.4-8.2)
[2020-08-19] MEDS ORDERED: THIAMINE HCL 100 MG TAB PO ONE (21:15)
[2020-08-19 22:35] VITALS: BP 122/78
[2020-08-20] MEDS ORDERED: FOLIC ACID 1 MG, MULTIPLE VITAMIN 10 ML, MAGNESIUM SULF SDV 50% 8 MEQ, THIAMINE INJ 100... INJ SCH ×5 (12:00)
== END 2020-08-19 22:19 | disposition left against medical advice (07) ==
LOC: EDUNIT# 16:21 → ER 16:30
DX: S50.312A Abrasion of left elbow, initial encounter (principal); F10.920 Alcohol use, unspecified with intoxication, uncomplicated; I10 Essential (primary) hypertension; Z79.899 Other long term (current) drug therapy; X58.XXXA Exposure to other specified factors, initial encounter; Y93.89 Activity, other specified; Y92.89 Other specified places as the place of occurrence of the external cause; Y99.8 Other external cause status
CPT/HCPCS: 36415; 80053; 80320; 85025; 93005